=== PATIENT | female | born 1980 | race Caucasian/White ===

== ENCOUNTER 2018-03-15 21:07 | Emergency (ER) | payer BC ==
[2018-03-15 21:32] VITALS: BP 127/73
--- NOTE | 2018-03-15 21:40 | UC ---
Skin Complaint HPI - HPI Summary HPI Summary: patient got a bug bite on tuesday, on and off itchy, slightly indurated and small ring of erythema, worried about lyme, it was not a tick that bit her. - History of Current Complaint Chief Complaint: UCSkin Time Seen by Provider: 03/15/18 21:29 Stated Complaint: BUG BITE ON LEG Hx Obtained From: Patient Hx Last Menstrual Period: 1 week ?: No Onset/Duration: Sudden Onset, Lasting Days - 2 Skin Exposure Onset/Duration: Days Ago Onset Severity: Mild Current Severity: None Pain Intensity: 0 Location: Discrete Related History: Possible Reaction to: Insect - Allergy/Home Medications Allergies/Adverse Reactions: Allergies Allergy/AdvReac Type Severity Reaction Status Date / Time droperidol Allergy Severe muscle Verified 03/15/18 21:37 aches Home Medications: Home Medications Beclomethasone Dipropionate [Qnasl] 1 puff IN DAILY 03/15/18 [History Confirmed 03/15/18] LevoCETirizine TAB (NF) [Xyzal TAB (NF)] 1 tab PO DAILY 03/15/18 [History Confirmed 03/15/18] Review of Systems Constitutional: Negative Skin: Other - bug bite Eyes: Negative ENT: Negative Cardiovascular: Negative Gastrointestinal: Negative Genitourinary: Negative Motor: Negative Neurovascular: Negative Musculoskeletal: Negative Neurological: Negative Psychological: Negative Is Patient Immunocompromised?: No All Other Systems Reviewed And Are Negative: Yes PMH/Surg Hx/FS Hx/Imm Hx Previously Healthy: Yes - Surgical History Surgical History: Yes Surgery Procedure, Year, and Place: wisdom teeth - Family History Known Family History: Positive: Hypertension - Social History Alcohol Use: None Substance Use Type: None Smoking Status (MU): Never Smoked Tobacco Physical Exam Triage Information Reviewed: Yes Appearance: Well-Appearing, No Pain Distress, Well-Nourished Vital Signs: Initial Vital Signs Temp 98.8 F 03/15/18 21:26 Pulse 73 03/15/18 21:26 Resp 15 03/15/18 21:26 BP 127/73 03/15/18 21:26 Pulse Ox 100 03/15/18 21:26 Eye Exam: Normal ENT Exam: Normal Dental Exam: Normal Neck exam: Normal Respiratory Exam: Normal Respiratory: Positive: Chest non-tender, Lungs clear, Normal breath sounds Cardiovascular Exam: Normal Cardiovascular: Positive: RRR, No Murmur, Pulses Normal Abdominal Exam: Normal Abdomen Description: Positive: Nontender, No Organomegaly, Soft Bowel Sounds: Positive: Present Musculoskeletal Exam: Normal Neurological Exam: Normal Psychological Exam: Normal Skin: Positive: significant lesion(s) - small bug bite with erythema, back of right leg Course/Dx - Course Course Of Treatment: hx obtained, exam performed ,meds reviewed, discussed lyme disease and bg bite reactions. no treatment at this time. - Differential Diagnoses - Skin Complaint Differential Diagnoses: Contact Dermatitis, Tick Born Illness - Diagnoses Provider Diagnoses: bug bite Discharge - Sign-Out/Discharge Documenting (check all that apply): Patient Departure - Discharge Plan Condition: Stable Disposition: HOME Patient Education Materials: Insect Bite or Sting (ED) Referrals: Kori Blakely MD [Primary Care Provider] - Additional Instructions: My suspicion of lyme is very low. Your bite is currently not bothering you , so if it starts to become Itchy, hydrocorticone or calamine lotion is best. that being said, I fyou develop any increase redness, swelling, fever follow up. - Billing Disposition and Condition Condition: STABLE Disposition: Home
== END 2018-03-15 21:44 | disposition home or self-care (01) ==
LOC: UCEAST 21:07
DX: S80.861A Insect bite (nonvenomous), right lower leg, initial encounter (principal); Z88.8 Allergy status to other drugs, medicaments and biological substances; W57.XXXA Bitten or stung by nonvenomous insect and other nonvenomous arthropods, initial encounter; Y92.9 Unspecified place or not applicable
CPT/HCPCS: 99201; G0463